=== PATIENT | male | born 1960 | race Caucasian/White ===

== ENCOUNTER 2018-01-03 14:50 | Emergency (ER) | payer MEDICAID ==
[~2018-01-03] VITALS: Ht 175.3 cm; Wt 61.0 kg
[2018-01-03 14:52] VITALS: BP 99/59
== END 2018-01-03 16:38 | disposition home or self-care (01) ==
LOC: ED 16:11
DX: B34.9 Viral infection, unspecified (principal); F17.210 Nicotine dependence, cigarettes, uncomplicated
CPT/HCPCS: 36415; 71046; 86308; 99285